=== PATIENT | male | born 1990 | race Caucasian/White ===

== ENCOUNTER 2017-04-03 01:38 | Emergency (ER) | payer OTHER ==
[~2017-04-03] VITALS: Ht 182.9 cm; Wt 72.6 kg
[2017-04-03] MEDS ORDERED: NKM (01:45)
[2017-04-03 02:00] VITALS: BP 120/72
--- NOTE | 2017-04-03 02:30 | Emergency Room Report ---
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 ~12 hours ago Coworkers cleaned out, put "medical glue inside" Tetanus is up to date C/o pain to area Allergies: Coded Allergies: No Known Allergies (Unverified , 04/03/17) Patient History Past Medical History: none Past Surgical History: none Pertinent Family History: none Social History: Denies: alcohol use, drug use, smoking Immunizations: UTD Reviewed Nursing Documentation: PMH: Agreed, PSxH: Agreed Nursing Documentation-PMH Past Medical History: No Stated History Review of Systems All Other Systems: negative except mentioned in HPI Physical Exam Vital Signs Date Time Temp Pulse Resp B/P Pulse Ox O2 Delivery O2 Flow Rate FiO2 04/03/17 01:42 98.1 63 18 124/74 98 Room Air Sp02 EP Interpretation: reviewed, normal General Appearance: normal inspection, well appearing, no apparent distress, alert, GCS 15, non-toxic Head: normocephalic, atraumatic Eyes: bilateral eye EOMI, bilateral eye PERRL ENT: normal ENT inspection, hearing grossly normal, normal voice Neck: normal inspection, full range of motion, supple, no bony tend Respiratory: normal inspection, lungs clear, normal breath sounds, no respiratory distress, no retraction, no wheezing Cardiovascular #1: regular rate, rhythm, no edema Gastrointestinal: normal inspection, normal bowel sounds, non tender, soft, no guarding, no hernia Genitourinary: no CVA tenderness Musculoskeletal: normal inspection, back normal, normal range of motion, Benny' s Sign negative, other - Left thumb base: 1.5cm linear laceration, glue seen just below surface. Thumb able to flex/extend, push medial/lateral without loss of motor strength. No laxity at joint. Neurologic: normal inspection, alert, oriented x3, responsive, section gang worker III-XII nml as tested, motor strength/tone normal, speech normal Psychiatric: normal inspection, judgement/insight normal, mood/affect normal Skin: normal inspection, normal color, no rash Procedures Laceration/Wound Repair Laceration/Wound Repair : Consent: Verbal Wound Location: upper extremity Wound's Depth, Shape: superficial Wound Explored: clean Betadine Prep?: Yes Anesthesia: Lidocaine w/ Epi Wound Debrided: minimal Wound Repaired With: sutures Suture Size/Type: 6:0 Number of Sutures: 3 Layer Closure?: No Sterile Dressing Applied?: Yes Splint Applied?: No Sling Applied?: No Patient Tolerated: Well Complications: None Medical Decision Making Diagnostic Impression: Primary Impression: Laceration of left hand Qualified Codes: S61.412A - Laceration without foreign body of left hand, initial encounter ER Course Laceration repaired in ED - see procedure note Will cover with doxy given seafood/water contamination Advised return in 2 days for wound check Last Vital Signs Date Time Temp Pulse Resp B/P Pulse Ox O2 Delivery O2 Flow Rate FiO2 04/03/17 01:42 98.1 63 18 124/74 98 Room Air Status: improved Disposition: HOME, SELF-CARE Scripts Ibuprofen* (MOTRIN*) 600 Mg Tablet 600 MG ORAL THREE TIMES A DAY for For Pain for 7 Days, #30 TAB 0 Refills Prov: BELKIS WARNER M.D. 04/03/17 Doxycycline Monohydrate* (DOXYCYCLINE MONOHYDRATE*) 100 Mg Capsule 100 MG ORAL Q12H for 7 Days, #13 CAP 0 Refills Prov: BELKIS WARNER M.D. 04/03/17 BELKIS WARNER M.D. Apr 03, 2017 02:30
[2017-04-03] MEDS ORDERED: IBUPROFEN600 MG ORAL (02:31)
[2017-04-03] MEDS ORDERED: DOXYCYCLINE MO100 MG ORAL (02:31)
[2017-04-03 02:55] VITALS: BP 122/70
[2017-04-03 02:58] VITALS: BP 122/70
== END 2017-04-03 02:58 | disposition home or self-care (01) ==
LOC: EMR 02:29
DX: S61.412A Laceration without foreign body of left hand, initial encounter (principal); W26.0XXA Contact with knife, initial encounter; Y93.9 Activity, unspecified; Y99.0 Civilian activity done for income or pay

== ENCOUNTER 2017-04-06 15:19 | Emergency (ER) | payer OTHER ==
[~2017-04-06] VITALS: Ht 182.9 cm; Wt 72.6 kg
[~2017-04-06 15:19] MED LIST: DOXYCYCLINE MO100 MG ORAL; IBUPROFEN600 MG ORAL; NKM
--- NOTE | 2017-04-06 15:47 | Emergency Room Report ---
History of Present Illness General Chief Complaint: Wound Recheck/Suture Removal Source: Patient Present Illness HPI The patient is a 26-year-old male presenting for wound check. He was seen in this emergency department 3 days prior for a laceration to the left hand. Sutures were placed and he was told to followup with his primary doctor. He states that he was told to followup in 3 days for wound check there has been unable to make appointment with primary doctor. Pain is a 3/10 dull ache and does not radiate from the left hand. He denies any other symptoms including redness, N, V, Fever, chills, numbness. He has been taking the keflex as prescribed. Allergies: Coded Allergies: No Known Allergies (Unverified , 04/03/17) Patient History Past Medical History: see triage record Pertinent Family History: none Reviewed Nursing Documentation: PMH: Agreed, PSxH: Agreed Nursing Documentation-PMH Past Medical History: No Stated History Review of Systems All Other Systems: negative except mentioned in HPI Physical Exam Vital Signs Date Time Temp Pulse Resp B/P Pulse Ox O2 Delivery O2 Flow Rate FiO2 04/06/17 15:24 98.2 68 16 120/70 98 Room Air Sp02 EP Interpretation: reviewed, normal General Appearance: no apparent distress, alert, GCS 15, non-toxic Head: normocephalic, atraumatic Eyes: bilateral eye PERRL, bilateral eye normal inspection ENT: hearing grossly normal, normal pharynx, no angioedema, normal voice Musculoskeletal: normal range of motion, tender - TTP over the L hand dorsal surface between 1st and 2nd MCPJs Neurologic: alert, oriented x3, responsive, motor strength/tone normal, sensory intact, speech normal Psychiatric: judgement/insight normal, memory normal, mood/affect normal, no suicidal/homicidal ideation Skin: wd healing/no infection noted - L hand: [address] No surrounding erythema. Well approximated, laceration Medical Decision Making PA Attestation Dr. Alejandro is my supervising physician. Patient management was discussed with my supervising physician Diagnostic Impression: Primary Impression: Visit for wound check ER Course The patient is a 26-year-old male presenting for wound check Differential diagnosis considered: Wound infection, nonhealing wound, cellulitis , abscess Physical exam reveals [address] of the left dorsal hand between the first and second MCP joints. Was well approximated. No bleeding. No surrounding erythema. Full active range of motion of the fingers and thumb. The patient was informed it is too early for suture removal as it has only been 3 days. He needs to followup with his worker's compensation. He will have sutures removed in another 3-5 days. He will continue to take his prescribed medications. ER precautions are given Last Vital Signs Date Time Temp Pulse Resp B/P Pulse Ox O2 Delivery O2 Flow Rate FiO2 04/06/17 15:24 98.2 68 16 120/70 98 Room Air Status: improved Disposition: HOME, SELF-CARE Condition: Improved Patient Instructions: Wound Check Additional Instructions: I discussed my findings with the patient. All questions and concerns have been answered. Treatment and medication compliance have been addressed. I advised the patient that they need to be seen in 3-5 days for wound check and suture removal. Return to ED if pain remains or worsens, you notice discharge from the wound, the wound continues to bleed, the suture/s fall out, you notice a fever or chills, or for any reason. Patient is advised to keep the wound clean. Patient verbalized understanding of discharge instructions. EVY MORSE Apr 06, 2017 15:47
[2017-04-06 15:55] VITALS: BP 112/69
== END 2017-04-06 15:55 | disposition home or self-care (01) ==
LOC: EMR 15:45
DX: Z09 Encounter for follow-up examination after completed treatment for conditions other than malignant neoplasm (principal); S61.412D Laceration without foreign body of left hand, subsequent encounter
CPT/HCPCS: 99281

== ENCOUNTER 2017-04-11 11:36 | Emergency (ER) | payer OTHER ==
[~2017-04-11] VITALS: Ht 182.9 cm; Wt 74.8 kg
[2017-04-11 12:05] VITALS: BP 122/76
[2017-04-11] MEDS ORDERED: MEDERMA20 GM TP (12:21)
--- NOTE | 2017-04-11 12:21 | Emergency Room Report ---
History of Present Illness General Chief Complaint: Wound Recheck/Suture Removal Source: Patient Present Illness HPI 26-year-old male presents emergency department for suture removal. Patient states he had sutures placed one week, left hand he denies erythema denies discharge denies bleeding. Patient denies pain. Tetanus is up-to-date. Denies CP, Palpitations, LOC, AMS, dizziness, Changes in Vision, Sensation, paresthesias, or a sudden severe headache. Allergies: Coded Allergies: No Known Allergies (Unverified , 04/03/17) Patient History Past Medical History: see triage record Past Surgical History: none Pertinent Family History: none Immunizations: UTD Reviewed Nursing Documentation: PMH: Agreed, PSxH: Agreed Nursing Documentation-PMH Past Medical History: No Stated History Review of Systems All Other Systems: negative except mentioned in HPI Physical Exam Vital Signs Date Time Temp Pulse Resp B/P (MAP) Pulse Ox O2 Delivery O2 Flow Rate FiO2 04/11/17 11:53 97.9 51 16 118/79 100 Room Air Sp02 EP Interpretation: reviewed, normal General Appearance: no apparent distress, alert, GCS 15, non-toxic Head: normocephalic, atraumatic Eyes: bilateral eye normal inspection, bilateral eye PERRL ENT: hearing grossly normal, normal voice Neck: full range of motion Respiratory: lungs clear, normal breath sounds, speaking full sentences Cardiovascular #1: regular rate, rhythm Musculoskeletal: back normal, gait/station normal, normal range of motion, non- tender, no calf tenderness Neurologic: alert, oriented x3, responsive, motor strength/tone normal, sensory intact, speech normal Psychiatric: judgement/insight normal, memory normal, mood/affect normal Skin: normal color, no rash, warm/dry, well hydrated, wd healing/no infection noted - left hand with [address] Lymphatic: no adenopathy Medical Decision Making PA Attestation Dr. Will is my supervising Physician whom patient management has been discussed with. Diagnostic Impression: Primary Impression: Encounter for removal of sutures ER Course Pt. presents to the ED c/o sutures placed 1 week ago in the left hand that need to be removed s/p wound closure. Ddx considered but are not limited to laceration, tendon injury, cellulitis, dehiscence. Vital signs: are WNL, pt. is afebrile H&PE are most consistent with: healed laceration of the Left hand, no infection noted. ORDERS: none required at this time, the diagnosis is clinical ED INTERVENTIONS: - 3 Sutures removed. DISCHARGE: At this time pt. is stable for d/c to home. Will provide printed patient care instructions, and any necessary prescriptions. Care plan and follow up instructions have been discussed with the patient prior to discharge. Last Vital Signs Date Time Temp Pulse Resp B/P (MAP) Pulse Ox O2 Delivery O2 Flow Rate FiO2 04/11/17 12:05 97.8 54 15 122/76 100 Room Air Disposition: HOME, SELF-CARE Condition: Stable Scripts Emollient Combination No.46 (MEDERMA) 20 Gm Cream..g. 1 APPLIC TP BID, #20 GM Prov: Carmen Jennings 04/11/17 Referrals: NOT CHOSEN IPA/,REFERRING (PCP) Patient Instructions: Suture Removal, Care After Additional Instructions: Follow up with a Primary Care Provider in 3-5 days, even if your symptoms have resolved. --Please review list of primary care clinics, if you do not already have a primary care provider Return sooner to ED if new symptoms occur, or current symptoms become worse. - Please note that this Emergency Department Report was dictated using [employer] shaker technology software, occasionally this can lead to erroneous entry secondary to interpretation by the dictation equipment. Carmen Jennings Apr 11, 2017 12:21
[2017-04-11 12:43] VITALS: BP 122/76
== END 2017-04-11 12:44 | disposition home or self-care (01) ==
LOC: EMR 12:04
DX: Z48.02 Encounter for removal of sutures (principal)
CPT/HCPCS: 99283